=== PATIENT | female | born 1950 | race Caucasian/White ===

== ENCOUNTER 2017-07-09 12:48 | Outpatient (CLI) | payer MEDICARE ==
--- OUTSIDE RECORDS SUMMARY | 2017-07-09 12:52 | XMS | Clinical Summary ---
:1950 Author Organization [facility] Address [address] [place] [id number] Phone Care Team Providers Name Role Phone , Primary Care Provider Unavailable Allergies Not on File Current Medications Not on file Active Problems Not on file Social History Tobacco Use Types Packs/Day Years Used Date Never Assessed Sex Assigned at Date Recorded Not on file Last Filed Vital Signs Not on file Plan of Treatment Not on file Results Not on filefrom Last 3 Months
== END 2017-07-09 12:49 | disposition home or self-care (01) ==
LOC: SCSMAMMO 12:48
PROVIDERS: ATTEND Internal Medicine
DX: Z12.31 Encounter for screening mammogram for malignant neoplasm of breast (principal)
CPT/HCPCS: 77067; G0202

== ENCOUNTER 2018-08-13 09:18 | Outpatient (CLI) | payer MEDICARE ==
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
== END 2018-08-13 09:19 | disposition home or self-care (01) ==
LOC: NM 09:18
PROVIDERS: ATTEND Orthopaedic Surgery
DX: M89.9 Disorder of bone, unspecified (principal); Z87.828 Personal history of other (healed) physical injury and trauma; Z98.890 Other specified postprocedural states
CPT/HCPCS: 78306; A9503

== ENCOUNTER 2018-11-30 10:37 | Outpatient (CLI) | payer MEDICARE ==
--- NOTE | 2018-11-30 16:53 | NM ---
NUCLEAR MEDICINE PARATHYROID PLANAR IMAGES WITH SPECT CT: RADIOPHARMACEUTICAL: 25 mGy Technetium 99m sestamibi IV. INDICATION: Endocrine abnormality No ultrasound or CT comparisons are available. FINDINGS: There is a focus of prominent radionuclide uptake seen on the immediate and delayed phase images with in the superior aspect of the right thyroid lobe that on SPECT images appears posterior to the thyroi d parenchyma. There are 2 additional areas of nodular uptake, less intense than the lesion on the right, within the left thyroid gland. One is seen within the superior pole of the left thyroid gland and also appears posterior to the thyroid parenchyma. The lowermost thyroid nodule also appears slightly posterior t o the thyroid parenchyma. IMPRESSION: Suspicious parathyroid scan. There are 3 separate areas of early and delayed activity seen involving the thyroid gland bilaterally that potentially could represent 3 separate parathyroid adenomas or po tentially could reflect exophytic thyroid adenomas. A CT scan utilizing a parathyroid adenoma protoc ol with IV contrast is recommended for additional characterization. POS: BETTY
== END 2018-11-30 10:38 | disposition home or self-care (01) ==
LOC: NM 10:37
PROVIDERS: ATTEND Internal Medicine
DX: E34.9 Endocrine disorder, unspecified (principal)
CPT/HCPCS: 78072; A9500

== ENCOUNTER 2019-02-04 09:07 | Observation (INO) | payer MEDICARE ==
[2019-02-03 13:01] VITALS: BMI 25.9
[2019-02-04 10:01] LABS: Hemoglobin 12.6 g/dL (12.0-16.0)
[2019-02-04 10:18] LABS: Anion Gap 11 mmol/L (10-20); BUN (Urea Nitrogen) 17 mg/dL (9.8-20.1); Calc. Creatinine Clearance 69 mL/min (70-130); Calcium 10.8 mg/dL (7.8-10.44); Carbon Dioxide 21 mmol/L (23-31); Chloride 110 mmol/L (98-107); Estimated GFR-MDRD 74; Glucose 90 mg/dL (80-115); Potassium 4.1 mmol/L (3.5-5.1); Sodium 138 mmol/L (136-145)
[2019-02-04] MEDS ORDERED: Fentanyl 100 MCG/2 ML VIAL ONE ×4 (10:18→13:50)
[2019-02-04] MEDS ORDERED: Lidocaine 1% w/Epinephrine 1:100K 20 ML VIAL ONE (10:20)
[2019-02-04] MEDS ORDERED: Morphine 4 MG/ML VIAL ONE (13:20)
[2019-02-04] MEDS ORDERED: Non-Formulary Medication 1 EACH PO PRN (13:57)
[2019-02-04] MEDS ORDERED: Morphine 4 MG/ML VIAL SLOW IVP PRN (13:57)
[2019-02-04] MEDS ORDERED: HYDROmorphone 2 MG/ML VIAL SLOW IVP PRN (13:57)
[2019-02-04] MEDS ORDERED: Ondansetron HCl/PF 4 MG/2 ML Vial IVP PRN (13:57)
[2019-02-04] MEDS ORDERED: Morphine Sulfate 2 MG/ML SYRINGE SLOW IVP PRN (13:57)
[2019-02-04] MEDS ORDERED: Promethazine HCl 25 MG/ML VIAL IM/IV PRN (13:57)
[2019-02-04] MEDS ORDERED: Morphine 2 MG/ML SYRINGE ONE (14:09)
[2019-02-04] MEDS ORDERED: HYDROmorphone 2 MG/ML VIAL ONE (14:48)
[2019-02-04] MEDS ORDERED: ePHEDrine 50 MG/ML VIAL ONE (14:50)
[2019-02-04] MEDS ORDERED: Glycopyrrolate 0.2 MG/ML 5 ML SYRINGE ONE (14:50)
[2019-02-04] MEDS ORDERED: Ondansetron PF 4 MG/2 ML Vial ONE (14:50)
[2019-02-04] MEDS ORDERED: PROPOFOL 200 MG/20 ML VIAL ONE (14:50)
[2019-02-04] MEDS ORDERED: Lidocaine 1% PF 5 ML VIAL ONE (14:50)
[2019-02-04] MEDS ORDERED: Dexamethasone 20 MG/5 ML VIAL ONE (14:50)
[2019-02-04] MEDS ORDERED: Morphine 2 MG/ML SYRINGE SLOW IVP PRN (16:29)
[2019-02-04] MEDS ORDERED: HYDROcodone/Acetaminophen 7.5/325 mg Tablet PO PRN ×2 (16:30→16:31)
[2019-02-04] MEDS ORDERED: Promethazine HCl 25 MG/ML VIAL SLOW IVP PRN (16:31)
[2019-02-04] MEDS ORDERED: Hydrochlorothiazide 25 MG TAB PO PRN (17:47)
[2019-02-04] MEDS ORDERED: Mometasone/Formoterol 120 PUFF INHALER INH PRN (17:47)
[2019-02-04] MEDS ORDERED: Zolpidem Tartrate 5 MG TAB PO PRN (17:50)
[2019-02-04] MEDS ORDERED: Atorvastatin Calcium 10 MG TAB PO SCH (21:00)
[2019-02-04] MEDS ORDERED: Pregabalin 75 MG CAP PO SCH (21:00)
[2019-02-04] MEDS: Gabapentin 300 MG CAP PO SCH (21:15)
[2019-02-04] MEDS: Cyclobenzaprine 10 MG TAB PO SCH (21:15)
[2019-02-04] MEDS: D5 1/4 NS 1,000 ML IV SCH (21:16)
[2019-02-04] MEDS: traMADol HCl 50 MG TAB PO SCH (21:16)
[2019-02-05] MEDS ORDERED: Levothyroxine Sodium 100 MCG TAB PO SCH (06:00)
[2019-02-05] MEDS: D5 1/4 NS 1,000 ML IV SCH (06:18)
[2019-02-05] MEDS ORDERED: PROVENTIL INHALER 6.7 G (200 INHALATIONS) INH SCH (07:00)
[2019-02-05] MEDS: Cyclobenzaprine 10 MG TAB PO SCH (08:10)
[2019-02-05] MEDS: traMADol HCl 50 MG TAB PO SCH (08:10)
[2019-02-05] MEDS: Gabapentin 300 MG CAP PO SCH (08:10)
[2019-02-05] MEDS ORDERED: Lisinopril 20 MG TAB PO SCH (09:00)
[2019-02-05] MEDS ORDERED: cefTRIAXone\\ROCEPHIN 1 GM in Sodium Chloride 0.9% 100 ML IVPB SCH (09:00)
[2019-02-05] MEDS ORDERED: Fluticasone Propionate Nasal Spray 16 gm Bottle NASAL SCH (09:00)
[2019-02-05] MEDS ORDERED: Meloxicam 7.5 MG TAB PO SCH (09:00)
[2019-02-05] MEDS ORDERED: Montelukast Sodium 10 mg Tablet PO SCH (09:00)
[2019-02-05] MEDS ORDERED: Prevnar 13-Val Conj/PF 0.5 ML SYRINGE IM ONE (09:00)
[2019-02-05 13:49] VITALS: BP 100/63; TEMP 98.4
--- NOTE | 2019-02-05 14:53 | PRG ---
DATE OF SERVICE: 02/05/2019 SUBJECTIVE: The patient is in hospital postop for parathyroidectomy. The patient is doing well. She is sitting comfortably. She reports just some minor discomfort with swallowing, but no difficulty swallowing. She was able to eat her breakfast this morning without any difficulty of food feeling like it was getting stuck again, though she did say it was a little uncomfortable. It was more of a liquid breakfast, but oat meal was included. She had no issues with that. OBJECTIVE: The patient is well developed, well nourished, in no acute distress. Her vital signs are stable. Her calcium is stable at 9.5. She is having no other complaints or issues at this time. ASSESSMENT: Postop parathyroidectomy. PLAN: 1. Release to regular diet for lunch. 2. Discharge after lunch. 3. She will see us in office next week for followup. Job ID: [id number]
--- NOTE | 2019-02-08 08:42 | OP ---
DATE OF PROCEDURE: 02/04/2019 PREOPERATIVE DIAGNOSIS: Multiple parathyroid adenomas. POSTOPERATIVE DIAGNOSIS: Multiple parathyroid adenoma. PROCEDURE PERFORMED: Parathyroid adenoidectomy, neck exploration with removal of multiple parathyroid adenomas. DESCRIPTION OF PROCEDURE: After consent was obtained, the patient was identified and brought to the operating room, where she was placed on the operative room table in supine position. General endotracheal anesthesia was obtained with a nerve integrity monitoring endotracheal tube and documented to be functioning. The patient was then prepped and draped . The neck was extended, prepped and draped, and the line of incision was infiltrated with 1% lidocaine 1:100,000 epinephrine. We then made an incision through the skin and subcutaneous tissues and turned our attention to the left side of the neck. The platysma was divided and subplatysmal flaps were elevated, and the strap muscles were divided in the midline. We then dissected down to the capsule of the thyroid gland and exposed and retracted the sternocleidomastoid medially, exposing the tracheoesophageal groove. It was there where we found 2 distinct large parathyroid adenomas, which were excised in a hemostatic fashion. We then sent them for histologic evaluation, which documented that they were in fact parathyroid tissue. We then turned our attention to the right side, where similar technique was used, and then, right superior parathyroid adenoma was identified. The inferior parathyroid gland appeared normal. We then turned our attention towards closing the wound. Hemostasis was obtained. The strap muscles were reapproximated as was the platysma, and the skin was closed with a subcutaneous absorbable suture and the skin itself with a 6-0 Prolene. Steri-Strips were applied. Sterile dressing was placed, and the patient was awakened, taken to recovery room in stable condition prior to discharge. Job ID: [id number]
== END 2019-02-05 14:35 | disposition home or self-care (01) ==
LOC: SDC 09:07 → SJJU 15:17
PROVIDERS: ADMIT Specialist; ATTEND Specialist
PROC: 0GBR0ZZ Excision of Parathyroid Gland, Open Approach (ICD-10-PCS; principal; 2019-02-04)
DX: D35.1 Benign neoplasm of parathyroid gland (principal); I10 Essential (primary) hypertension; F32.9 Major depressive disorder, single episode, unspecified; J45.909 Unspecified asthma, uncomplicated; Z79.01 Long term (current) use of anticoagulants; Z79.51 Long term (current) use of inhaled steroids; Z79.899 Other long term (current) drug therapy
CPT/HCPCS: 60500; 80048; 82310; 85014; 85018; 88305; 93005; 94640; 94664; 96361 ×2; 96365; G0378; 36415; 93010; J0696; J1100; J1170; J2001; J2270; J2405; J2704; J3010; J3490

== ENCOUNTER 2019-12-16 12:47 | Outpatient (CLI) | payer MEDICARE ==
--- NOTE | 2019-12-16 14:05 | RAD ---
Lumbar spine 4 views: 12/16/2019 COMPARISON: 07/14/2013 HISTORY: Lumbar radiculopathy, low back pain, sciatica FINDINGS: L5 and S1 pedicle screws are present on the right with a vertically oriented interlocking r od and intervertebral disc device. There is a sclerotic lesion involving the medial aspect of the acetabulum on the right, unchanged whe n compared to the 2012 examination. There is incompletely imaged postoperative hardware in the region of the right femoral head. The inferior endplate of L4-5, the superior endplate of S1, and the anterior aspect of the L5 and S1 vertebral bodies are ill-defined, similar when compared to 02/19/2017 CT examination of the lumbar spine performed at the [facility]. There is no significant anterolisthesis or retrolisthesis on the neutral, flexion, or extension views . At T12-L1 there is mild disc space narrowing and anterior osteophyte formation. IMPRESSION: Postoperative and degenerative changes within the lumbar spine as detailed above.
--- NOTE | 2019-12-16 15:41 | MRI ---
MRI LUMBAR SPINE WITH AND WITHOUT CONTRAST: DATE: 12/16/2019 HISTORY: 69-year-old female with low back pain and bilateral lumbar radiculopathy, recently becoming worse. COMPARISON: 02/19/2017 TECHNIQUE: Multiple sequences obtained in axial and sagittal planes, pre and post IV injection of gadolinium-bas ed contrast agent. FINDINGS: Kyphosis at lower thoracic spine related to chronic old mild wedge compression loss of height of T11. Mild to moderate degenerative disc disease at T10-11 and T11-12 without high-grade central spinal canal stenosis or high-grade neural foraminal stenosis at those levels. Lumbar vertebral body heights are maintained. Normal bone marrow signal throughout the lumbar spine proper. There is partially imaged bone marrow edema at the left sacral ala visible only on the far left lateral sagittal image s lices, and visible on axial images. There is enhancement of the bone marrow here. On the contralateral right sacral ala, there is hyperintense signal on the T2-weighted axial images and on t he postcontrast T1-weighted images, but because there is right-sided metallic hardware, it is uncertain whether this signal abnormality is entirely due to magnetic susceptibility artifact, or whe ther there is actual marrow edema in that location as well. If the latter is true, these are suspicious for bilateral sacral insufficiency fractures. These are new findings compared to the prior MRI .There is no other significant interval change overall. No epidural abscess. No abnormal, unexpected enhancement. Cauda equina is arranged in a symmetrical, normal diffusion throughout the th ecal sac. Atrophy of bilateral posterior paraspinal musculature, chronic. No other major pathology of perivertebral spaces. T12-L1:No central stenosis. No high-grade neural foraminal stenosis. No high-grade disc space narrowi ng. L1-2:Conus medullaris terminates at this level. Normal. L2-3:Minimal retrolisthesis of L2 on L3. Otherwise essentially normal. L3-4:Minimal retrolisthesis of L3 on L4. Disc space maintained. Chronic moderate bilateral neural for aminal stenosis. Mild to moderate bilateral facet DJD. No central stenosis. L4-5:Minimal disc bulge. Disc space maintained. Mild to moderate chronic bilateral neural foraminal s tenosis. No central stenosis. Ankylosis of left facet joint. L5-S1:Grade 1 anterolisthesis of L5 on S1. Unilateral right pedicle screws at L5 and S1. Interbody ca ge material. Successful ankylosis between the endplates across the ossified intervertebral disc space. Midline laminectomy defect. Generous caliber of spinal canal and thecal sac. No high-grade mattie ral foraminal stenosis. Ankylosis of left facet joint. IMPRESSION: 1) evidence for bilateral sacral insufficiency fractures, incompletely imaged 2) no other interval change. 3) no central spinal canal stenosis at any level. 4) status post midline laminectomy and posterior lumbar interbody fusion with right pedicle screws, f ixating an stabilizing a grade 1 spondylolisthesis at L5-S1. Successful ankylosis.
--- NOTE | 2019-12-16 17:45 | CT ---
EXAM: LUMBAR SPINE CT WITHOUT CONTRAST: 12/16/19 COMPARISON: 02/19/17 CORRELATION: MRI lumbar spine 12/16/19. HISTORY: Low back pain radiating down both lower extremities x6 months, worsening. FINDINGS: Five lumbar type vertebra. Preserved vertebral body heights. There is no fracture. There is redemonst ration of laminectomy defect at L5-S1. Redemonstration of unilateral right sided transpedicular screw s at L5-S1. There does not appears to be any perihardware lucency. Stable positioning of the unilater al right sided transpedicular screws. There does appear to be stable mild diffuse bone demineralizati on of the visualized sacrum and bony pelvis. Correlation made with MRI performed today does demonstra te sacral insufficiency fractures. Fractures are difficult to discern given the overall degree of bon e demineralization. Mild vacuum joint phenomenon in both SI joints is identified. There are extensive hypertrophic changes involving the right posterior elements at L4-L5 and L5-S1. There appears to be a partial left facetectomy. There appears to be 2.8 mm of anterolisthesis of L5 upon S1. The visualized solid organs and alimentary canal are unremarkable. No retroperitoneal or paraspinal mass, lymphadenopathy, or hematoma. Visualized pelvic structures are grossly unremarkable. Fat attenuation in the right aspect of the pel vis is incompletely evaluated. There is evidence of sigmoid colon diverticulosis, without evidence of diverticulitis. Limited evaluation of the contents of the central spinal canal and neural foramina due to technique. Refer to lumbar spine MRI performed immediately following this exam for further detail. IMPRESSION: 1. Findings compatible with laminectomy changes and fusion at the L5-S1 level. There is associat ed grade I anterolisthesis of L5 upon S1. 2. Abnormal signal intensity noted in the sacrum on MRI performed today. There is suggestion of sacral insufficiency fractures which are difficult to discern on the current CT given the overall deg ree of bone demineralization. However, there does appear to be subtle cortical irregularity involving the left aspect of the sacrum (image 60, series 3). POS: CET
== END 2019-12-16 12:48 | disposition home or self-care (01) ==
LOC: BICMRI 12:47
PROVIDERS: ATTEND Physician Assistant
DX: M54.30 Sciatica, unspecified side (principal); M79.606 Pain in leg, unspecified; M47.26 Other spondylosis with radiculopathy, lumbar region; M43.17 Spondylolisthesis, lumbosacral region; M43.27 Fusion of spine, lumbosacral region; R93.7 Abnormal findings on diagnostic imaging of other parts of musculoskeletal system; Z98.1 Arthrodesis status; M84.48XA Pathological fracture, other site, initial encounter for fracture
CPT/HCPCS: 72110; 72131; 72158

== ENCOUNTER 2020-12-06 09:13 | Outpatient (CLI) | payer MEDICARE ==
--- NOTE | 2020-12-06 09:50 | ULT ---
THYROID ULTRASOUND INDICATION: Hyperparathyroidism TECHNIQUE: Grayscale and color Doppler images were obtained of the thyroid gland. COMPARISON: None FINDINGS: Right thyroid lobe: The right thyroid lobe measures 1.4 x 1.4 x 3.7 cm. There is a well-circumscribed cystic lesion involving the lower pole of the right thyroid gland with internal septation measuring 9 x 6 x 7 mm. Thyroid isthmus: The thyroid isthmus measures 0.5 cm. Left thyroid lobe: The left thyroid lobe measures 1.4 x 1.6 x 3.3 cm. There is a small spongiform cys tic lesion involving the superior pole of the left thyroid lobe measuring 4 x 4 x 3 mm. IMPRESSION: 1. Bilateral thyroid lesions. The most suspicious is consistent with a TIRADS 2 lesion. No ultrasound follow-up is recommended.
--- NOTE | 2020-12-06 13:38 | NM ---
Radionucleotide parathyroid scan with SPECT imaging HISTORY: Hyperparathyroidism. Physiologic uptake of radiotracer within the thyroid gland and salivary glands. Delayed images show a focus of increased radiotracer uptake over the right lower neck. SPECT images s how it to localize immediately posterior to the inferior pole of the right thyroid lobe, where a 0.6 cm soft tissue density nodule is present on the CT images. IMPRESSION : Evidence of parathyroid adenoma posterior to the inferior pole right thyroid lobe.
== END 2020-12-06 09:14 | disposition home or self-care (01) ==
LOC: ULT 09:13
PROVIDERS: ATTEND Internal Medicine Endocrinology, Diabetes & Metabolism
DX: E21.2 Other hyperparathyroidism (principal); D35.1 Benign neoplasm of parathyroid gland; E07.89 Other specified disorders of thyroid
CPT/HCPCS: 76536; 78072; A9500